=== PATIENT | male | born 1945 | race Caucasian/White ===

== ENCOUNTER 2017-08-14 10:35 | Emergency (ER) | payer MEDICARE ==
[~2017-08-14 10:35] MED LIST: AEC81 PO; INSU100I15 SQ; LOSA50TA37 PO; METF10004 PO; OMEP20CA10 PO; SIMV40TA59 PO; TRIAM15CRM TP; TUGEO SQ
[2017-08-14 11:40] LABS: BASOPHILS % (AUTO) 1.2 % (0.0-5.0); EOSINOPHILS % (AUTO) 4.9 % (0.0-8.0); HEMATOCRIT 42.3 % (42-54); LYMPHOCYTES % (AUTO) 26.7 % (21.0-51.0); MEAN CORPUSCULAR HEMOGLOBIN 29.3 pg (27.0-33.0); MEAN CORPUSCULAR VOLUME 83.6 fL (79-99); MONOCYTES % (AUTO) 6.8 % (3.0-13.0); NEUTROPHILS % (AUTO) 60.4 % (40.0-77.0); PLATELET COUNT (AUTO) 214 K/uL (130-400); RED BLOOD CELL COUNT(AUTO) 5.06 MIL/uL (4.50-6.20); RED CELL DISTRIBUTION WIDTH 13.9 % (11.0-15.5)
[2017-08-14 11:47] LABS: CREATININE 1.1 mg/dL (0.5-1.5); POTASSIUM 4.1 mmol/L (3.5-5.1)
[2017-08-14] MEDS ORDERED: MORPHINE SULFATE 4 MG/1ML SYG ONE ×2 (12:39→14:56)
[2017-08-14] MEDS ORDERED: ONDANSETRON HCL MDV 20ML 2 MG/ML VIAL ONE ×2 (12:41→12:42)
[2017-08-14 14:14] LABS: APPEARANCE,URINE CLEAR (CLEAR); BILIRUBIN,URINE NEGATIVE (NEGATIVE); COLOR,URINE YELLOW (YELLOW); GLUCOSE, URINE (UA) >=1000 mg/dL (NEGATIVE); KETONES,URINE 5 mg/dL (NEGATIVE); LEUKOCYTE ESTERASE ,URINE NEGATIVE (NEGATIVE); NITRATE,URINE NEGATIVE (NEGATIVE); OCCULT BLOOD,URINE NEGATIVE (NEGATIVE); PROTEIN,URINE NEGATIVE (NEGATIVE); UROBILINOGEN,URINE 0.2 mg/dL (0.2-1.0)
[2017-08-14 14:23] LABS: RBC,URINE None Seen /HPF (0-1)
[2017-08-14 14:24] LABS: BACTERIA,URINE None Seen /HPF (None Seen); SQUAMOUS EPITHELIAL CELL,UR 0-2 /HPF (0-2); WBC,URINE None Seen /HPF (0-1)
[2017-08-14] MEDS ORDERED: METHYLPREDNISOLONE SOD SUCC 125MG/2ML VIAL ONE (14:50)
== END 2017-08-14 15:17 | disposition home or self-care (01) ==
LOC: EDH 10:35
DX: M54.5 Low back pain (principal); J44.9 Chronic obstructive pulmonary disease, unspecified; E11.9 Type 2 diabetes mellitus without complications; I10 Essential (primary) hypertension; E78.5 Hyperlipidemia, unspecified; Z87.891 Personal history of nicotine dependence; Z85.72 Personal history of non-Hodgkin lymphomas
CPT/HCPCS: 36415; 72100; 80048; 81001; 85025; 96374; 96375; 96376; 99285; J2270 ×2; J2930

== ENCOUNTER 2019-06-16 05:56 | Day surgery (SDC) | payer OTHER ==
[~2019-06-16] VITALS: Ht 185.4 cm; Wt 98.0 kg
[~2019-06-16 05:56] MED LIST changes: +APIX5TAB PO; +GLIP5TAB11 PO; -INSU100I15 SQ; +INSU300I3 SQ; -LOSA50TA37 PO; +LOSA50TA64 PO; +METF-446 PO; -METF10004 PO; -OMEP20CA10 PO; +OMEP20CA12 PO; -TUGEO SQ
[2019-06-16] MEDS ORDERED: SODIUM CHLORIDE 0.9% 1000ML 1,000 ML IV ONE (06:25)
[2019-06-16 06:45] VITALS: BP 110/57
[2019-06-16] MEDS ORDERED: PROPOFOL 10 MG/ML 20ML VIAL IV ONE (07:30)
[2019-06-16] MEDS ORDERED: LIDOCAINE HCL 1% 20 ML VIAL ONE (07:32)
[2019-06-16 07:50] VITALS: BP 89/48
[2019-06-16 07:55] VITALS: BP 99/52
[2019-06-16 08:00] VITALS: BP 104/61
[2019-06-16 08:10] VITALS: BP 108/51
== END 2019-06-16 08:21 | disposition home or self-care (01) ==
LOC: DAH 05:56 → ENDO 05:56
PROVIDERS: ATTEND Internal Medicine Gastroenterology
DX: Z12.11 Encounter for screening for malignant neoplasm of colon (principal); D12.3 Benign neoplasm of transverse colon; D12.2 Benign neoplasm of ascending colon; K62.1 Rectal polyp; K57.30 Diverticulosis of large intestine without perforation or abscess without bleeding; I10 Essential (primary) hypertension; M19.90 Unspecified osteoarthritis, unspecified site; G47.33 Obstructive sleep apnea (adult) (pediatric); I25.10 Atherosclerotic heart disease of native coronary artery without angina pectoris; E66.01 Morbid (severe) obesity due to excess calories; E11.9 Type 2 diabetes mellitus without complications; J44.9 Chronic obstructive pulmonary disease, unspecified; Z86.010 Personal history of colon polyps; Z99.89 Dependence on other enabling machines and devices; Z98.890 Other specified postprocedural states; Z79.84 Long term (current) use of oral hypoglycemic drugs; Z79.899 Other long term (current) drug therapy; Z79.82 Long term (current) use of aspirin; Z95.5 Presence of coronary angioplasty implant and graft
CPT/HCPCS: 45380; 45385; 82948; 88305; A4215; A4221; A4222; A4223; A4606; A4615; A4663; J2704; J7030

== ENCOUNTER → 2019-07-21 | Outpatient (CLI) | payer OTHER ==
[~2019-07-21] MED LIST changes: -APIX5TAB PO; -TRIAM15CRM TP
== END | disposition home or self-care (01) ==
LOC: RAH 14:16
PROVIDERS: ATTEND Internal Medicine Cardiovascular Disease
DX: R06.00 Dyspnea, unspecified (principal); M47.814 Spondylosis without myelopathy or radiculopathy, thoracic region
CPT/HCPCS: 71046

== ENCOUNTER 2020-03-01 11:53 | Observation (INO) | payer OTHER ==
[2020-02-28 13:37] LABS: EOSINOPHILS % (AUTO) 4.9 % (0.0-8.0); HEMATOCRIT 46.9 % (42-54); LYMPHOCYTES % (AUTO) 18.1 % (21.0-51.0); MEAN CORPUSCULAR HEMOGLOBIN 28.2 pg (27.0-33.0); MEAN CORPUSCULAR VOLUME 85.3 fL (79-99); MONOCYTES % (AUTO) 6.6 % (3.0-13.0); NEUTROPHILS % (AUTO) 69.1 % (40.0-77.0); PLATELET COUNT (AUTO) 233 K/uL (130-400); RED CELL DISTRIBUTION WIDTH 13.8 % (11.0-15.5); WHITE BLOOD COUNT (AUTO) 12.1 K/uL (4.8-10.8)
[2020-02-28 13:45] LABS: CREATININE 1.2 mg/dL (0.5-1.5); POTASSIUM 4.8 mmol/L (3.5-5.1)
[2020-02-28 13:50] LABS: APPEARANCE,URINE Clear (CLEAR); BILIRUBIN,URINE Negative (NEGATIVE); COLOR,URINE Yellow (YELLOW); GLUCOSE, URINE (UA) >=1000 mg/dL (NEGATIVE); KETONES,URINE 15 mg/dL (NEGATIVE); LEUKOCYTE ESTERASE ,URINE Negative (NEGATIVE); NITRATE,URINE Negative (NEGATIVE); OCCULT BLOOD,URINE Negative (NEGATIVE); PH,URINE 5.5 (5.0-8.0); PROTEIN,URINE Trace mg/dL (NEGATIVE)
[2020-02-28 13:57] LABS: INR 1.05 (0.85-1.15); PARTIAL THROMBOPLASTIN TIME 25.9 SEC (26.3-35.5); PROTHROMBIN TIME 11.3 SEC (9.6-11.6)
[2020-02-28 14:17] LABS: BACTERIA,URINE Rare /HPF (None Seen); RBC,URINE 0-1 /HPF (0-1); SQUAMOUS EPITHELIAL CELL,UR Rare /HPF (0-2); WBC,URINE 0-1 /HPF (0-1)
[2020-02-29 09:39] VITALS: BP 122/68
--- NOTE | 2020-02-29 16:00 | NUR ---
ABNORMAL LABS INFORMED ELEANOR RUTLEDGE REGARDING ABNORMAL LABS (WBC 12.1, NA 134, GLUCOSE 316). RECEIVED ORDERS TO REDRAW GLUCOSE IN AM.
[~2020-03-01] VITALS: Ht 185.4 cm; Wt 94.4 kg
[2020-03-01] VITALS (8 sets, daily range): BP systolic 121–175; BP diastolic 59–85
[~2020-03-01 11:53] MED LIST changes: +GLIP10TA9 PO; -GLIP5TAB11 PO; +INSU100I15 SQ; -SIMV40TA59 PO; +SODIUM CHLORIDE 0.9% 500ML 500 ML IV SCH
[2020-03-01] MEDS ORDERED: IBUP200C5 PO (13:10)
[2020-03-01] MEDS ORDERED: ROSU20TA31 PO (13:10)
[2020-03-01] MEDS ORDERED: SODIUM CHLORIDE 0.9% IV SCH (15:00)
[2020-03-01] MEDS ORDERED: EPOPROSTENOL SODIUM IV SCH (15:00)
[2020-03-01] MEDS ORDERED: BIVALIRUDIN 250 MG/VIAL IV ONE (17:18)
[2020-03-01] MEDS ORDERED: LIDOCAINE HCL 2% 20ML ONE (17:18)
[2020-03-01] MEDS ORDERED: SODIUM BICARB 50MEQ 50ML VIAL 50 ML ONE (17:18)
[2020-03-01] MEDS ORDERED: IOHEXOL 350 MG/ML 100ML INFUS..BTL IV ONE (17:18)
[2020-03-01] MEDS ORDERED: NITROGLYCERIN 2 MG/VIAL VIAL IV ONE (17:18)
[2020-03-01] MEDS ORDERED: FENTANYL CITRATE PF 50 MCG/1 ML 2ML VIAL ONE (17:57)
[2020-03-01] MEDS ORDERED: HEPARIN SODIUM 1000UNIT/ML 10ML VIAL ONE (18:18)
[2020-03-01] MEDS ORDERED: TICAGRELOR 90 MG TABLET ONE (19:04)
[2020-03-01] MEDS ORDERED: ASPIRIN 325MG EC TAB 325 MG TABLET.DR PO ONE (19:05)
[2020-03-01] MEDS: ACETAMINOPHEN EXTRA STRENGTH 500 MG TABLET ONE (22:48)
[2020-03-02 00:28] VITALS: BP 148/80
[2020-03-02 04:00] VITALS: BP 154/85
[2020-03-02 06:05] LABS: POTASSIUM 3.8 mmol/L (3.5-5.1)
--- NOTE | 2020-03-02 07:00 | NUR ---
PATIENT UPDATE PT ADMITTED FROM [facility] LAST NIGHT AT 2030 S/P LEFT AND HEART CATH , POLO PULLED OUT FROM [facility], PERCLOSE DRESSING TO THE RT GROIN. RT VENOUS SHEATH TO THE RT FEMORAL. SITE SOFT TO TOUCH, NO HEMATOMA NOTED. NS INFUSED AT 80 CC/HR FOR 4 HRS. PTT WAS DOWN TO 52.6 AT 2145, RT FEMORAL VENOUS SHEATH PULLED OUT, PRESSURE DRESSING APPLIED. PULSES GOOD, EXTREMITIES WARM. OFF BEDREST BY 0330. ASSISTED UP TO THE RESTROOM , MOD ASSISTANCE, HAVING BACK DISCOMFORT AFTER BEING IN BED FOR SO MANY HOURS. TYLENOL GIVEN FOR PAIN LAST NIGHT FOR THE PAIN. VITAL SIGNS STABLE. RT GROIN SOFT TO TOUCH, NO HEMATOMA NOTED.
--- NOTE | 2020-03-02 07:35 | NUR ---
ASSESSMENT PT IS AAOX3, DENIES CP DENIES SOB DENIES NV NO COMPLAINTS AT THIS TIME, RESTING IN BED, CALL LIGHT WITHIN REACH. RIGHT GROIN DRESSING CLEAN DRY AND INTACT NO HEMATOMA NOTED.
[2020-03-02 08:30] VITALS: BP 125/74
[2020-03-02] MEDS: ASPIRIN 81MG TAB.CHEW ONE (10:04)
[2020-03-02] MEDS: TICAGRELOR 90 MG TABLET ONE (10:04)
[2020-03-02] MEDS ORDERED: TICA90TA PO (10:25)
--- NOTE | 2020-03-02 10:28 | NUR ---
[facility] ROUNDED / DISCHARGE ORDERED TO DC HOME, NO BETA BLOCKERS ORDERED FOR DC
--- NOTE | 2020-03-02 10:43 | NUR ---
DC INSTRUCTIONS GIVEN TO PT AND FAMILY MEMBER AGREE TO TAKE MEDS ORDERED AGREE TO FOLLOW UP WITH DR ROBLES ALL QUESTIONS ANSWERED, PIV REMOVED CATH TIP INTACT, TELE PACK REMOVED.
== END 2020-03-02 11:00 | disposition home or self-care (01) ==
LOC: DAH 11:53 → 4DH 11:54 → DAH 11:54
PROVIDERS: ADMIT Internal Medicine Cardiovascular Disease; ATTEND Internal Medicine Cardiovascular Disease
DX: I27.20 Pulmonary hypertension, unspecified (principal); J84.10 Pulmonary fibrosis, unspecified; I48.3 Typical atrial flutter; I25.10 Atherosclerotic heart disease of native coronary artery without angina pectoris; E11.9 Type 2 diabetes mellitus without complications; I10 Essential (primary) hypertension; E78.5 Hyperlipidemia, unspecified; G47.33 Obstructive sleep apnea (adult) (pediatric); Z85.72 Personal history of non-Hodgkin lymphomas; Z95.5 Presence of coronary angioplasty implant and graft; Z99.89 Dependence on other enabling machines and devices; Z79.84 Long term (current) use of oral hypoglycemic drugs; Z79.82 Long term (current) use of aspirin; Z79.899 Other long term (current) drug therapy
CPT/HCPCS: 36415 ×3; 71045; 80048 ×2; 81001; 82948 ×3; 85025; 85610; 85730 ×2; 93005; 93460; 93463; A4215; A4216; A4221; A4222; A4223 ×3; A4606; A4663; C1760; C1769 ×2; C1874; C1887 ×2; C1894 ×3; C9600; G0378 ×14; J1325 ×2; J1644 ×2; J3010; J3490 ×3; Q9965 ×3; Q9967; 99156; 99157; J0583